=== PATIENT | female | born 1995 | race African-American/Black ===

== ENCOUNTER 2018-07-08 17:43 | Emergency (ER) | payer SELFPAY ==
[2018-07-08] MEDS ORDERED: Ibuprofen 800 MG TAB ONE (18:24)
[2018-07-08] MEDS ORDERED: Dexamethasone 10 MG/ML VIAL ONE (18:41)
== END 2018-07-08 18:40 | disposition home or self-care (01) ==
LOC: ERS 17:43
DX: J02.9 Acute pharyngitis, unspecified (principal); F41.9 Anxiety disorder, unspecified; F31.9 Bipolar disorder, unspecified
CPT/HCPCS: 87081; 87430; 99283; J1100

== ENCOUNTER 2019-04-07 19:19 | Emergency (ER) | payer SELFPAY ==
[2019-04-07] MEDS ORDERED: Metoclopramide HCl 10 MG/2 ML VIAL ONE (20:16)
[2019-04-07] MEDS ORDERED: Ketorolac Tromethamine 30 MG/ML VIAL ONE (20:16)
[2019-04-07] MEDS ORDERED: diphenhydrAMINE 50 MG/ML VIAL ONE (20:16)
== END 2019-04-07 21:41 | disposition home or self-care (01) ==
LOC: ERS 19:19
DX: R51 Headache (principal); F31.9 Bipolar disorder, unspecified
CPT/HCPCS: 96365; 96375; J1200; J1885; J2765

== ENCOUNTER 2019-06-08 12:01 | Emergency (ER) | payer SELFPAY ==
--- NOTE | 2019-06-08 12:31 | RAD ---
Left hand 3 views HISTORY: Hand injury. FINDINGS: Comminuted fracture with minimal displacement involves the distal tuft of the ring finger. No evidence of intra-articular extension. Mild osteophytosis and joint space narrowing of the interphalangeal joints. No aggressive osseous ero sions. IMPRESSION: Mildly displaced comminuted distal tuft fracture left ring finger. Mild osteoarthritis.
[2019-06-08] MEDS ORDERED: Lidocaine 1% (PF) 30 ML VIAL ONE (12:52)
[2019-06-08] MEDS ORDERED: Bupivacaine 0.5% 10 ML VIAL ONE (12:53)
[2019-06-08] MEDS ORDERED: Adacel (T-DAP) 0.5 ML SYRINGE ONE (14:05)
[2019-06-08] MEDS ORDERED: Sterile Water 10 ML ONE (14:05)
[2019-06-08] MEDS ORDERED: CEFAZOLIN 1 GM VIAL ONE (14:06)
== END 2019-06-08 14:32 | disposition home or self-care (01) ==
LOC: ERS 12:01
DX: S62.635A Displaced fracture of distal phalanx of left ring finger, initial encounter for closed fracture (principal); S68.125A Partial traumatic metacarpophalangeal amputation of left ring finger, initial encounter; F41.9 Anxiety disorder, unspecified; F31.9 Bipolar disorder, unspecified; W23.0XXA Caught, crushed, jammed, or pinched between moving objects, initial encounter
CPT/HCPCS: 29125; 90471; 90715; 96372; J0690; J2001; J3490

== ENCOUNTER 2020-05-25 13:03 | Emergency (ER) | payer SELFPAY ==
--- NOTE | 2020-05-25 13:39 | RAD ---
3 views right shoulder: 05/25/2020 COMPARISON: None HISTORY: Injury, trauma, pain FINDINGS: No fracture or dislocation. No radiopaque foreign body or subcutaneous gas. IMPRESSION: No acute findings.
--- NOTE | 2020-05-25 13:40 | RAD ---
3 views right wrist: 05/25/2020 COMPARISON: None HISTORY: Injury, trauma, pain FINDINGS: No fracture or dislocation. No radiopaque foreign body or subcutaneous gas. If symptoms per sist, conservative management with follow-up imaging in 7-10 days including dedicated scaphoid views advised. IMPRESSION: No acute findings.
[2020-05-25] MEDS ORDERED: Acetaminophen 500 MG TAB ONE (14:12)
--- NOTE | 2020-05-25 15:28 | RAD ---
FRONTAL CHEST WITH TWO VIEWS RIGHT RIBS: Date: 05-25-2020 PROVIDED CLINICAL HISTORY: Pain status post injury FINDINGS: Cardiac and mediastinal silhouette is within normal limits. No focal consolidation, pleural fluid, or pneumothorax apparent. No evidence for a displaced right sided rib fracture. IMPRESSION: No evidence for an acute process. POS: [id number]
[2020-05-25 16:08] LABS: BHCG - Serum Negative (NEGATIVE); Pregs Control Background? CLEAR/WHITE (CLR/WHITE); Pregs Control Bar Appear? YES (CONTROL BAR)
[2020-05-25] MEDS ORDERED: Diazepam 5 MG TAB ONE (16:18)
== END 2020-05-25 16:54 | disposition home or self-care (01) ==
LOC: ERS 13:03
DX: S20.211A Contusion of right front wall of thorax, initial encounter (principal); M25.511 Pain in right shoulder; M25.531 Pain in right wrist; M54.2 Cervicalgia; F41.9 Anxiety disorder, unspecified; F31.9 Bipolar disorder, unspecified; W10.9XXA Fall (on) (from) unspecified stairs and steps, initial encounter
CPT/HCPCS: 36415; 84703

== ENCOUNTER 2020-11-19 13:30 | Emergency (ER) | payer SELFPAY ==
[2020-11-19 14:23] LABS: #Eosinphils 0.1 thou/uL (0.0-0.7); #Lymphocytes 1.6 thou/uL (1.20-3.40); #Monocytes 0.3 thou/uL (0.11-0.59); #Neutrophils 6.1 thou/uL (1.40-6.50); %Basophils 0.2 % (0.0-1.0); %Eosinophils 0.8 % (0.0-10.0); %Lymphocytes 19.6 % (21.0-51.0); %Monocytes 3.4 % (0.0-10.0); Hemoglobin 12.2 g/dL (12.0-16.0); Mean Corpuscular HGB CONC 34.1 g/dL (32.0-36.0); Mean Corpuscular Hemoglobin 31.6 pg (27.0-31.0); Mean Corpuscular Volume 92.7 fL (78.0-98.0); Mean Platelet Volume 8.6 fL (7.4-10.4); Platelet Count 216 thou/uL (130-400); RBC Distribution Width 11.5 % (11.5-14.5); Red Blood Cell (RBC) Count 3.86 mill/uL (4.20-5.40)
[2020-11-19 14:47] LABS: ALT (SGPT) Less than 7 U/L (8-55); AST (SGOT) 14 U/L (5-34); Alkaline Phosphatase 76 U/L (40-110); Anion Gap 11 mmol/L (10-20); BUN (Urea Nitrogen) 6 mg/dL (7.0-18.7); Bilirubin, Total 0.5 mg/dL (0.2-1.2); Calc. Creatinine Clearance 0 mL/min (70-130); Calcium 9.4 mg/dL (7.8-10.44); Carbon Dioxide 24 mmol/L (22-29); Chloride 106 mmol/L (98-107); Glucose 92 mg/dL (70-105); Lipase 16 U/L (8-78); Potassium 3.8 mmol/L (3.5-5.1); Sodium 137 mmol/L (136-145)
[2020-11-19] MEDS ORDERED: Famotidine/PF 20 mg/2ml Vial ONE (15:05)
[2020-11-19] MEDS ORDERED: methylPREDNISolone Sod Succ/PF 125 MG/2 ML VIAL ONE (15:05)
[2020-11-19] MEDS ORDERED: diphenhydrAMINE 25 MG CAP ONE (15:05)
[2020-11-19] MEDS ORDERED: diphenhydrAMINE 50 MG/ML VIAL ONE (15:06)
[2020-11-19 15:08] LABS: BHCG - Serum Negative (NEGATIVE); Pregs Control Background? CLEAR/WHITE (CLR/WHITE); Pregs Control Bar Appear? YES (CONTROL BAR)
[2020-11-19 15:15] LABS: Bilirubin Negative (Negative); Blood, Urine Trace (Negative); Clarity Clear (Clear); Glucose, Urine (Dipstick) Normal (Negative); Ketone, Urine Negative (Negative); Leukocyte Negative Leu/uL (Negative); Nitrite 2+ (Negative); Protein, Urine (Dipstick) Negative (Neg-Trace); RBC/HPF None Seen HPF (0-3); Specific Gravity, Urine 1.011 (1.002-1.036); Squamous Epithelial 0-3 HPF (0-3); Urobilinogen Normal mg/dL (Less than 2); WBC/HPF 0-3 HPF (0-3); pH, Urine 6.5 (5.0-9.0)
[2020-11-19 15:17] LABS: Bacteria/HPF 1+ HPF (None Seen)
[2020-11-19 15:19] LABS: Amphetamine Not Detected (NotDetected); Barbiturates Screen Not Detected (NotDetected); Benzodiazepine Screen Not Detected (NotDetected); Cocaine Metabolite Screen Not Detected (NotDetected); Medtox Control Line Valid? VALID (VALID); Medtox Reader # READER 4; Methadone Not Detected (NotDetected); Methamphetamine Not Detected (NotDetected); Opiate Screen Not Detected (NotDetected); Oxycodone Screen Not Detected (NotDetected); Phencyclidine (PCP) Not Detected (NotDetected); THC/Cannabinoid Screen Detected (NotDetected); Tricyclic Screen Not Detected (NotDetected)
[2020-11-19 15:28] LABS: HIV (1/2) Antibody/Antigen Non-Reactive (NonReactive); HIV 1/2 INDEX 0.17 S/CO (<1.00)
[2020-11-19] MEDS ORDERED: Lorazepam 2 MG/ML VIAL ONE (15:36)
[2020-11-19 15:49] LABS: Acetaminophen Less than 6.0 mcg/mL (10.0-30.0); Alcohol Less than 10 mg/dL (Less than 10); Salicylate Less than 8.0 mg/dL (15.0-30.0)
== END 2020-11-19 18:04 | disposition home or self-care (01) ==
LOC: ERS 13:30
DX: R55 Syncope and collapse (principal); N39.0 Urinary tract infection, site not specified
CPT/HCPCS: 36415; 36416; 74176; 80053; 80306; 80307; 81003; 81015; 82550; 83690; 84443; 84484; 84703; 85025; 87389; 93005; 96374; J1200; J2060; J2930; Q0163; S0028

== ENCOUNTER 2020-11-20 22:16 | Emergency (ER) | payer MEDICAID, SELFPAY ==
[2020-11-20] MEDS ORDERED: Ondansetron ODT 4 MG TAB ONE ×2 (22:22→22:23)
[2020-11-20] MEDS ORDERED: Ondansetron PF 4 MG/2 ML Vial ONE (22:22)
[2020-11-21 00:08] LABS: #Eosinphils 0.1 thou/uL (0.0-0.7); #Lymphocytes 2.3 thou/uL (1.20-3.40); #Monocytes 0.3 thou/uL (0.11-0.59); #Neutrophils 5.3 thou/uL (1.40-6.50); %Basophils 0.2 % (0.0-1.0); %Eosinophils 0.8 % (0.0-10.0); %Lymphocytes 28.4 % (21.0-51.0); %Monocytes 3.8 % (0.0-10.0); %Neutrophils 66.8 % (42.0-75.0); Hemoglobin 12.5 g/dL (12.0-16.0); Mean Corpuscular HGB CONC 33.8 g/dL (32.0-36.0); Mean Corpuscular Hemoglobin 31.3 pg (27.0-31.0); Mean Corpuscular Volume 92.7 fL (78.0-98.0); Mean Platelet Volume 8.3 fL (7.4-10.4); Platelet Count 238 thou/uL (130-400); RBC Distribution Width 11.4 % (11.5-14.5); Red Blood Cell (RBC) Count 3.99 mill/uL (4.20-5.40); White Blood Cell (WBC) Count 7.9 thou/uL (4.8-10.8)
[2020-11-21 00:25] LABS: Amphetamine Not Detected (NotDetected); Barbiturates Screen Not Detected (NotDetected); Benzodiazepine Screen Detected (NotDetected); Cocaine Metabolite Screen Not Detected (NotDetected); Medtox Control Line Valid? VALID (VALID); Medtox Reader # READER 1; Methadone Not Detected (NotDetected); Methamphetamine Not Detected (NotDetected); Opiate Screen Not Detected (NotDetected); Oxycodone Screen Not Detected (NotDetected); Phencyclidine (PCP) Not Detected (NotDetected); THC/Cannabinoid Screen Detected (NotDetected); Tricyclic Screen Not Detected (NotDetected)
[2020-11-21 00:29] LABS: Acetaminophen Less than 6.0 mcg/mL (10.0-30.0); Alcohol Less than 10 mg/dL (Less than 10); Salicylate Less than 8.0 mg/dL (15.0-30.0)
[2020-11-21 00:31] LABS: ALT (SGPT) Less than 7 U/L (8-55); AST (SGOT) 15 U/L (5-34); Albumin 4.3 g/dL (3.5-5.0); Alkaline Phosphatase 81 U/L (40-110); Anion Gap 13 mmol/L (10-20); BUN (Urea Nitrogen) 11 mg/dL (7.0-18.7); Bilirubin, Total 0.4 mg/dL (0.2-1.2); Calc. Creatinine Clearance 0 mL/min (70-130); Calcium 9.3 mg/dL (7.8-10.44); Carbon Dioxide 23 mmol/L (22-29); Chloride 106 mmol/L (98-107); Globulin 3.2 g/dL (2.4-3.5); Glucose 94 mg/dL (70-105); Potassium 3.7 mmol/L (3.5-5.1); Protein, Total 7.5 g/dL (6.0-8.3); Sodium 138 mmol/L (136-145)
[2020-11-21 00:33] LABS: Pregnancy Test - Urine (BHCG) Negative (Negative); Pregu Control Background? CLEAR/WHITE (CLR/WHITE); Pregu Control Bar Appear? YES (CONTROL BAR); Specific Gravity 1.026 (1.002-1.036)
[2020-11-21 00:38] LABS: Bacteria/HPF None Seen HPF (None Seen); Bilirubin Negative (Negative); Blood, Urine Trace (Negative); Clarity Turbid (Clear); Glucose, Urine (Dipstick) Normal (Negative); Ketone, Urine 10 mg/dL (Negative); Leukocyte 75 Leu/uL (Negative); Nitrite Negative (Negative); Protein, Urine (Dipstick) 20 mg/dL (Neg-Trace); Specific Gravity, Urine 1.028 (1.002-1.036); Urobilinogen Normal mg/dL (Less than 2); pH, Urine 6.5 (5.0-9.0)
[2020-11-21] MEDS ORDERED: Ondansetron PF 4 MG/2 ML Vial ONE (01:07)
[2020-11-21] MEDS ORDERED: Lorazepam 1 MG TAB ONE ×2 (01:09→14:56)
[2020-11-21] MEDS ORDERED: cefTRIAXone\\ROCEPHIN 1 GM VIAL ONE (01:37)
[2020-11-21] MEDS ORDERED: hydrOXYzine 25 MG TAB ONE (01:44)
[2020-11-21] MEDS ORDERED: Ondansetron ODT 4 MG TAB ONE (12:58)
== END 2020-11-21 17:01 | disposition home or self-care (01) ==
LOC: ERS 22:16
DX: F41.9 Anxiety disorder, unspecified (principal); F32.9 Major depressive disorder, single episode, unspecified; Z79.899 Other long term (current) drug therapy
CPT/HCPCS: 36415; 80053; 80306; 80307; 81003; 81015; 81025; 84443; 85025; 87077; 87086; 96365; 96366; J0696; J2405; Q0162

== ENCOUNTER 2021-01-29 21:35 | Emergency (ER) | payer MEDICAID | END 2021-01-29 23:40 | disposition home or self-care (01) | LOC: ERS 21:35 | DX: B34.9 Viral infection, unspecified (principal) | CPT/HCPCS: 87081; 87430; 99283 ==

== ENCOUNTER 2021-03-10 | Emergency (ER) | payer SELFPAY | END 2021-03-10 20:46 | disposition home or self-care (01) ==

== ENCOUNTER 2021-08-18 12:38 | Emergency (ER) | payer SELFPAY ==
[2021-08-18] MEDS ORDERED: Acetaminophen 325 MG TAB ONE (13:49)
[2021-08-18 14:08] LABS: Bilirubin Negative (Negative); Blood, Urine Negative (Negative); Clarity Turbid (Clear); Glucose, Urine (Dipstick) Normal (Negative); Ketone, Urine Negative (Negative); Leukocyte Negative Leu/uL (Negative); Nitrite Negative (Negative); Protein, Urine (Dipstick) Negative (Neg-Trace); Specific Gravity, Urine 1.006 (1.002-1.036); Urobilinogen Normal mg/dL (Less than 2); pH, Urine 6.5 (5.0-9.0)
[2021-08-18 14:10] LABS: Pregnancy Test - Urine (BHCG) Negative (Negative); Pregu Control Background? CLEAR/WHITE (CLR/WHITE); Pregu Control Bar Appear? YES (CONTROL BAR); Specific Gravity 1.006 (1.002-1.036)
== END 2021-08-18 16:22 ==
LOC: ERS 12:38
DX: S10.93XA Contusion of unspecified part of neck, initial encounter (principal); S40.022A Contusion of left upper arm, initial encounter; S40.021A Contusion of right upper arm, initial encounter; S80.12XA Contusion of left lower leg, initial encounter; H92.03 Otalgia, bilateral; Y04.8XXA Assault by other bodily force, initial encounter
CPT/HCPCS: 70450; 72070; 72100; 72125; 81003; 81025

== ENCOUNTER 2021-11-18 08:39 | Emergency (ER) | payer MEDICAID, SELFPAY ==
[2021-11-18] MEDS ORDERED: Acetaminophen 500 MG TAB ONE (10:11)
[2021-11-18] MEDS ORDERED: Morphine 4 MG/ML VIAL ONE (10:11)
[2021-11-18] MEDS ORDERED: Ondansetron PF 4 MG/2 ML Vial ONE (10:11)
== END 2021-11-18 12:21 | disposition home or self-care (01) ==
LOC: ERS 08:39
DX: S50.12XA Contusion of left forearm, initial encounter (principal); S50.11XA Contusion of right forearm, initial encounter; S30.811A Abrasion of abdominal wall, initial encounter; S29.9XXA Unspecified injury of thorax, initial encounter; S39.92XA Unspecified injury of lower back, initial encounter; M79.604 Pain in right leg; M25.572 Pain in left ankle and joints of left foot; Y04.0XXA Assault by unarmed brawl or fight, initial encounter
CPT/HCPCS: 36415; 71045; 71250; 74177; 84702; 96374; 96375; J2270; J2405

== ENCOUNTER 2022-03-29 08:26 | Emergency (ER) | payer MEDICAID, SELFPAY ==
[2022-03-29] MEDS ORDERED: Ibuprofen 200 MG TAB ONE (09:20)
[2022-03-29] MEDS ORDERED: Acetaminophen 325 MG TAB ONE (09:20)
== END 2022-03-29 09:28 | disposition home or self-care (01) ==
LOC: ERS 08:26
DX: S90.31XA Contusion of right foot, initial encounter (principal); W23.1XXA Caught, crushed, jammed, or pinched between stationary objects, initial encounter

== ENCOUNTER 2022-05-08 16:25 | Emergency (ER) | payer SELFPAY ==
[2022-05-08] MEDS ORDERED: Ondansetron ODT 4 MG TAB ONE ×2 (17:12→17:22)
[2022-05-08] MEDS ORDERED: Dexamethasone 10 MG/ML VIAL ONE (17:22)
[2022-05-08] MEDS ORDERED: Acetaminophen 500 MG TAB ONE (17:22)
[2022-05-08] MEDS ORDERED: Ketorolac Tromethamine 30 MG/ML VIAL ONE (17:22)
[2022-05-08] MEDS ORDERED: Benzocaine 20% Spray 60 ML CAN ONE (17:22)
== END 2022-05-08 18:03 | disposition home or self-care (01) ==
LOC: ERS 16:25
DX: J02.0 Streptococcal pharyngitis (principal)
CPT/HCPCS: 87430; 87804; 96372; 99283; J1100; J1885; Q0162

== ENCOUNTER 2022-05-22 09:28 | Emergency (ER) | payer SELFPAY ==
[2022-05-22] MEDS ORDERED: Acetaminophen 325 MG TAB ONE (10:52)
[2022-05-22] MEDS ORDERED: Boostrix 0.5 ML (Tdap) VIAL (>/=7 yrs of age) ONE (13:09)
[2022-05-22] MEDS ORDERED: Ondansetron ODT 4 MG TAB ONE ×2 (13:24→13:25)
[2022-05-22] MEDS ORDERED: Ondansetron PF 4 MG/2 ML Vial ONE (13:24)
== END 2022-05-22 13:37 | disposition home or self-care (01) ==
LOC: ERS 09:28
DX: S16.1XXA Strain of muscle, fascia and tendon at neck level, initial encounter (principal); S05.11XA Contusion of eyeball and orbital tissues, right eye, initial encounter; S40.012A Contusion of left shoulder, initial encounter; S20.212A Contusion of left front wall of thorax, initial encounter; S80.02XA Contusion of left knee, initial encounter; Z23 Encounter for immunization; Y04.0XXA Assault by unarmed brawl or fight, initial encounter
CPT/HCPCS: 70450; 70486; 71045; 72125; 90471; 90715; J2405; Q0162

== ENCOUNTER 2022-12-04 13:09 | Emergency (ER) | payer SELFPAY ==
[~2022-12-04 13:09] MED LIST: Iopamidol-370 76% 500 ML MDV (1 ML CHARGE) ONE
[2022-12-04] MEDS ORDERED: methylPREDNISolone Sod Succ/PF 125 MG/2 ML VIAL ONE (14:01)
[2022-12-04] MEDS ORDERED: Famotidine/PF 20 mg/2ml Vial ONE (14:01)
[2022-12-04] MEDS ORDERED: diphenhydrAMINE 50 MG/ML VIAL ONE (14:01)
[2022-12-04] MEDS ORDERED: methylPREDNISolone Sod Succ 40 MG VIAL ONE (14:02)
== END 2022-12-04 16:27 | disposition home or self-care (01) ==
LOC: ERS 13:09
DX: M54.2 Cervicalgia (principal); Y04.8XXA Assault by other bodily force, initial encounter
CPT/HCPCS: 70450; 70498; 96374; 96375; J1200; J2920; J2930; Q9967; S0028

== ENCOUNTER 2023-03-28 11:35 | Emergency (ER) | payer SELFPAY ==
[2023-03-28] MEDS ORDERED: Ibuprofen 200 MG TAB ONE (11:54)
[2023-03-28 12:39] LABS: SARS-CoV-2 NAA Rapid Test Not Detected (NotDetected)
== END 2023-03-28 12:54 | disposition home or self-care (01) ==
LOC: ERS 11:35
DX: B34.9 Viral infection, unspecified (principal); Z20.822 Contact with and (suspected) exposure to COVID-19
CPT/HCPCS: 87081; 87430; 99284

== ENCOUNTER 2023-06-08 11:22 | Emergency (ER) | payer SELFPAY ==
[2023-06-08] MEDS ORDERED: Acetaminophen 500 MG TAB ONE (13:30)
[2023-06-08 14:06] LABS: #Monocytes 0.6 thou/uL (0.11-0.59); #Neutrophils 13.9 thou/uL (1.40-6.50); %Basophils 0.2 % (0.0-1.0); %Eosinophils 0.1 % (0.0-10.0); %Lymphocytes 6.7 % (21.0-51.0); %Monocytes 3.5 % (0.0-10.0); %Neutrophils 89.1 % (42.0-75.0); Hematocrit 39.9 % (36.0-47.0); Hemoglobin 13.4 g/dL (12.0-16.0); Mean Corpuscular HGB CONC 33.6 g/dL (32.0-36.0); Mean Corpuscular Hemoglobin 30.9 pg (27.0-31.0); Mean Corpuscular Volume 92.1 fl (78.0-98.0); Mean Platelet Volume 10.7 fL (7.4-10.4); Platelet Count 271 10x3/uL (130-400); RBC Distribution Width 12.5 % (11.5-14.5); Red Blood Cell (RBC) Count 4.33 mill/uL (4.20-5.40); White Blood Cell (WBC) Count 15.5 10x3/uL (4.8-10.8)
[2023-06-08 14:37] LABS: ALT (SGPT) 18 U/L (8-55); AST (SGOT) 32 U/L (5-34); Albumin 4.9 g/dL (3.5-5.0); Alkaline Phosphatase 81 U/L (40-110); Anion Gap 11 mmol/L (10-20); BUN (Urea Nitrogen) 9 mg/dL (7.0-18.7); Bilirubin, Total 0.7 mg/dL (0.2-1.2); Calc. Creatinine Clearance 0 mL/min (70-130); Calcium 9.5 mg/dL (7.8-10.44); Carbon Dioxide 27 mmol/L (22-29); Chloride 106 mmol/L (98-107); Estimated GFR 101; Globulin 3.1 g/dL (2.4-3.5); Glucose 76 mg/dL (70-105); Lipase 22 U/L (8-78); Potassium 3.6 mmol/L (3.5-5.1); Sodium 140 mmol/L (136-145)
[2023-06-08 14:48] LABS: BHCG - Serum Negative (NEGATIVE); Pregs Control Background? CLEAR/WHITE (CLR/WHITE); Pregs Control Bar Appear? YES (CONTROL BAR)
== END 2023-06-08 15:17 | disposition home or self-care (01) ==
LOC: ERS 11:22
DX: M79.601 Pain in right arm (principal)
CPT/HCPCS: 70450; 71250; 72125; 74177; 80053; 83690; 84703; 85025; 93880

== ENCOUNTER 2025-03-07 12:14 | Emergency (ER) | payer SELFPAY ==
[2025-03-07 13:12] LABS: CAUTI Indications for Culture Dysuria,urgency,freq; Glucose, Urine (Dipstick) Normal (Negative); Leukocyte 500 Leu/uL (Negative); Protein, Urine (Dipstick) 30 mg/dL (Neg-Trace); Specific Gravity, Urine 1.016 (1.002-1.036)
[2025-03-07 13:29] LABS: Bacteria/HPF 2+ HPF (None Seen); WBC/HPF Greater than 50 HPF (0-3)
[2025-03-07 13:33] LABS: Urine Culture Reflex Yes Yes
[2025-03-07 13:54] LABS: Pregnancy Test - Urine (BHCG) Negative (Negative); Pregu Control Background? CLEAR/WHITE (CLR/WHITE); Pregu Control Bar Appear? YES (CONTROL BAR)
[2025-03-07] MEDS ORDERED: Ketorolac Tromethamine 30 MG (1 mL) VIAL ONE (14:12)
== END 2025-03-07 15:00 | disposition home or self-care (01) ==
LOC: ERS 12:14
DX: N39.0 Urinary tract infection, site not specified (principal); N76.0 Acute vaginitis; B96.89 Other specified bacterial agents as the cause of diseases classified elsewhere
CPT/HCPCS: 74176; 81001; 81025; 87077; 87086; 87480; 87510; 87660; 96372; J1885

== ENCOUNTER 2025-04-09 06:50 | Emergency (ER) | payer SELFPAY ==
[2025-04-09 07:44] LABS: Pregnancy Test - Urine (BHCG) Negative (Negative); Pregu Control Background? CLEAR/WHITE (CLR/WHITE); Pregu Control Bar Appear? YES (CONTROL BAR)
[2025-04-09 07:45] LABS: Bacteria/HPF 2+ HPF (None Seen); CAUTI Indications for Culture Dysuria,urgency,freq; Glucose, Urine (Dipstick) Normal (Negative); Leukocyte 500 Leu/uL (Negative); Protein, Urine (Dipstick) Negative (Neg-Trace); RBC/HPF 0-3 HPF (0-3); Specific Gravity, Urine 1.004 (1.002-1.036); WBC/HPF Greater than 50 HPF (0-3)
[2025-04-09 07:46] LABS: Urine Culture Reflex Yes Yes
[2025-04-10 00:04] LABS: Chlamydia by PCR, Vaginal Swab Not Detected (NotDetected); GC by PCR, Vaginal Swab Not Detected (NotDetected)
== END 2025-04-09 08:29 | disposition home or self-care (01) ==
LOC: ERS 06:50
DX: N39.0 Urinary tract infection, site not specified (principal)
CPT/HCPCS: 81001; 81025; 87077; 87086; 87480; 87491; 87510; 87591; 87660; 99283

== ENCOUNTER 2025-05-25 14:19 | Emergency (ER) | payer OTHER, SELFPAY ==
[2025-05-25] MEDS ORDERED: Acetaminophen 500 MG TAB ONE (14:50)
[2025-05-25] MEDS ORDERED: Ketorolac Tromethamine 30 MG (1 mL) VIAL ONE (14:50)
[2025-05-25] MEDS ORDERED: Ondansetron PF 4 MG/2 ML Vial ONE (14:50)
[2025-05-25 15:24] LABS: Bacteria/HPF 2+ HPF (None Seen); CAUTI Indications for Culture Dysuria,urgency,freq; Glucose, Urine (Dipstick) Normal (Negative); Leukocyte 500 Leu/uL (Negative); Protein, Urine (Dipstick) Negative (Neg-Trace); RBC/HPF 0-3 HPF (0-3); Specific Gravity, Urine 1.005 (1.002-1.036); WBC/HPF Greater than 50 HPF (0-3)
[2025-05-25 15:25] LABS: #Basophils 0.03 10x3/uL (0.0-0.2); #Eosinophils 0.05 10x3/uL (0.0-0.7); #Monocytes 0.76 10x3/uL (0.11-0.59); #Neutrophils 11.96 10x3/uL (1.40-6.50); %Basophils 0.2 % (0.0-1.0); %Eosinophils 0.4 % (0.0-10.0); %Lymphocytes 8.5 % (21.0-51.0); %Monocytes 5.4 % (0.0-10.0); %Neutrophils 85.2 % (42.0-75.0); Hematocrit 32.1 % (36.0-47.0); Hemoglobin 11.0 g/dL (12.0-16.0); Mean Corpuscular Hemoglobin 30.6 pg (27.0-31.0); Mean Corpuscular Volume 89.2 fL (78.0-98.0); Platelet Count 248 10x3/uL (130-400); Red Blood Cell (RBC) Count 3.60 mill/uL (4.20-5.40); White Blood Cell (WBC) Count 14.04 10x3/uL (4.8-10.8)
[2025-05-25 15:35] LABS: BHCG - Serum Negative (NEGATIVE); Pregs Control Background? CLEAR/WHITE (CLR/WHITE); Pregs Control Bar Appear? YES (CONTROL BAR)
[2025-05-25 15:41] LABS: Urine Culture Reflex Yes Yes
[2025-05-25 15:43] LABS: ALT (SGPT) 217 U/L (Less than 34); AST (SGOT) 171 U/L (11-34); Albumin 3.4 g/dL (3.1-4.5); Alkaline Phosphatase 135 U/L (40-110); Anion Gap 15 mmol/L (10-20); BUN (Urea Nitrogen) 10 mg/dL (7.0-18.7); Bilirubin, Total 0.6 mg/dL (0.3-1.2); Calc. Creatinine Clearance 0 mL/min (70-130); Calcium 9.1 mg/dL (7.8-10.44); Carbon Dioxide 23 mmol/L (22-29); Chloride 102 mmol/L (98-107); Globulin 4.2 g/dL (2.4-3.5); Glucose 101 mg/dL (70-105); Lipase 12 U/L (8-78); Potassium 3.4 mmol/L (3.5-5.1); Sodium 137 mmol/L (136-145)
[2025-05-25] MEDS ORDERED: cefTRIAXone (ROCEPHIN) 2 GM VIAL ONE (15:54)
== END 2025-05-25 16:39 | disposition home or self-care (01) ==
LOC: ERS 14:19
DX: N30.00 Acute cystitis without hematuria (principal)
CPT/HCPCS: 80053; 81001; 83605; 83690; 84703; 85025; 87040; 87077; 87086; 87186; 96365; 96375; J0696; J1885; J2405